=== PATIENT | female | born 1945 | race Caucasian/White ===

== ENCOUNTER 2017-02-07 15:55 | Emergency (ER) | payer MEDICARE, MEDICAID | END 2017-02-07 16:40 | LOC: MADERS 15:55 | DX: Z04.3 Encounter for examination and observation following other accident (principal); R53.1 Weakness; I48.91 Unspecified atrial fibrillation; D64.9 Anemia, unspecified; G47.00 Insomnia, unspecified; G20 Parkinson's disease; F02.80 Dementia in other diseases classified elsewhere, unspecified severity, without behavioral disturbance, psychotic disturbance, mood disturbance, and anxiety; E03.9 Hypothyroidism, unspecified; K21.9 Gastro-esophageal reflux disease without esophagitis; F32.9 Major depressive disorder, single episode, unspecified; I95.1 Orthostatic hypotension; F29 Unspecified psychosis not due to a substance or known physiological condition; Z79.82 Long term (current) use of aspirin; Z79.899 Other long term (current) drug therapy; W05.0XXA Fall from non-moving wheelchair, initial encounter | CPT/HCPCS: 99284 ==

== ENCOUNTER 2017-05-05 08:58 | Emergency (ER) | payer MEDICARE, MEDICAID ==
--- NOTE | 2017-05-05 09:47 | RAD ---
PORTABLE UPRIGHT FRONTAL CHEST RADIOGRAPH: Date: 05/05/17 COMPARISON: 08/09/15. HISTORY: Weakness. FINDINGS: Severe degenerative change at the right shoulder noted. Stimulating device with associated leads exte nd into the left aspect of the neck. No lobar consolidation or alveolar edema. Mild interstitial prom inence noted. IMPRESSION: No lobar consolidation or alveolar edema. POS: JOSUE
--- NOTE | 2017-05-05 10:00 | RAD ---
KUB: Date: 05/05/17 HISTORY: Altered mental status, abdominal pain and mass. FINDINGS: There is a large amount of stool overlying the pelvis, which is likely on the basis of a stool-filled rectum. Question fecal impaction. Motion limits detailed assessment. There is mild gaseous distentio n of the sigmoid colon and ascending colon. Supine imaging limits assessment for small bowel obstruct ion and free intraperitoneal air. IMPRESSION: Limited examination demonstrates no evidence for small bowel obstruction. Prominent stool overlies th e pelvis suggesting possible fecal impaction. Evaluation for abdominal mass could be best assessed vi a CT as clinically indicated. POS: REGINA
[2017-05-05 10:08] LABS: Mean Corpuscular HGB CONC 32.9 g/dL (32.0-36.0); Mean Corpuscular Hemoglobin 30.5 pg (27.0-31.0); Mean Corpuscular Volume 92.6 fL (81.0-99.0); Red Blood Cell (RBC) Count 4.25 mill/uL (4.20-5.40); White Blood Cell (WBC) Count 8.1 thou/uL (4.8-10.8)
[2017-05-05 10:09] LABS: #Basophils 0.1 thou/uL (0.0-0.2); #Eosinphils 0.1 thou/uL (0.0-0.7); #Monocytes 0.6 thou/uL (0.11-0.59); #Neutrophils 6.4 thou/uL (1.40-6.50); %Basophils 0.7 % (0.0-1.0); %Eosinophils 0.7 % (0.0-10.0); %Lymphocytes 12.4 % (21.0-51.0); %Monocytes 7.2 % (0.0-10.0); %Neutrophils 79.1 % (42.0-75.0); Mean Platelet Volume 7.6 fL (7.4-10.4); Platelet Count 290 thou/uL (130-400); RBC Distribution Width 12.6 % (11.5-14.5)
[2017-05-05 10:16] LABS: Carbon Dioxide 28 mmol/L (23-31); Chloride 104 mmol/L (98-107); Potassium 4.2 mmol/L (3.5-5.1); Sodium 139 mmol/L (136-145)
[2017-05-05 10:17] LABS: ALT (SGPT) 9 U/L (8-55); AST (SGOT) 19 U/L (5-34); Albumin 3.2 g/dL (3.4-4.8); Alkaline Phosphatase 173 U/L (40-150); Anion Gap 11 mmol/L (10-20); BUN (Urea Nitrogen) 16 mg/dL (9.8-20.1); Bilirubin, Total 0.6 mg/dL (0.2-1.2); Calc. Creatinine Clearance 0 mL/min (70-130); Calcium 8.6 mg/dL (7.8-10.44); Estimated GFR-MDRD Greater than 90; Globulin 3.9 g/dL (2.4-3.5); Glucose 99 mg/dL (83-110); Protein, Total 7.1 g/dL (5.8-8.1)
[2017-05-05 10:22] LABS: Clarity Slightly Cloudy (Clear); Leukocyte Moderate (Negative); Nitrite Positive (Negative); Protein, Urine (Dipstick) Trace mg/dL (Neg-Trace)
[2017-05-05 10:23] LABS: Bacteria/HPF 2+ HPF (None Seen); Bilirubin Negative (Negative); Blood, Urine Trace (Negative); Glucose, Urine (Dipstick) Negative (Negative); RBC/HPF 0-3 HPF (0-3); Squamous Epithelial 0-3 HPF (0-3); Urobilinogen 0.2 mg/dL (0.2-1.0)
[2017-05-05 10:32] LABS: CKMB 0.9 ng/mL (0-6.6); Troponin I Less than 0.010 ng/mL (< 0.028)
[2017-05-05] MEDS ORDERED: cefTRIAXone\\ROCEPHIN 1 GM VIAL ONE (10:53)
== END 2017-05-05 13:32 | disposition short-term general hospital (02) ==
LOC: MADERS 08:58
DX: N39.0 Urinary tract infection, site not specified (principal); R00.1 Bradycardia, unspecified; I48.91 Unspecified atrial fibrillation; G20 Parkinson's disease; F02.80 Dementia in other diseases classified elsewhere, unspecified severity, without behavioral disturbance, psychotic disturbance, mood disturbance, and anxiety; G47.00 Insomnia, unspecified; K21.9 Gastro-esophageal reflux disease without esophagitis; E03.9 Hypothyroidism, unspecified; M19.90 Unspecified osteoarthritis, unspecified site; M47.812 Spondylosis without myelopathy or radiculopathy, cervical region; F32.9 Major depressive disorder, single episode, unspecified
CPT/HCPCS: 51701; 71010; 74000; 80053; 81003; 81015; 82553; 84484; 85025; 87077; 87086; 87186; 93005; 96374; A4353; J0696

== ENCOUNTER 2017-07-06 16:54 | Outpatient (CLI) | payer MEDICARE, OTHER | END 2017-07-06 16:55 | disposition home or self-care (01) | LOC: MADLABBHPM 16:54 | PROVIDERS: ATTEND Family Medicine | DX: R05 Cough (principal); R50.9 Fever, unspecified; R09.89 Other specified symptoms and signs involving the circulatory and respiratory systems ==

== ENCOUNTER 2019-04-26 08:11 | Emergency (ER) | payer MEDICARE, OTHER ==
--- NOTE | 2019-04-26 08:45 | RAD ---
RADIOGRAPH CHEST 1 VIEW: DATE: 04/26/2019 HISTORY: 74-year-old female with fever. FINDINGS: There are no airspace densities, pulmonary edema, pneumothorax, or cardiomegaly. The lateral costophr enic angles are sharp. DBS generator overlies lateral aspect of left midlung field, with leads ascending the left neck. IMPRESSION: 1. No acute cardiopulmonary findings. 2. Deep brain stimulator.
[2019-04-26 08:48] LABS: Bilirubin Small (Negative); Blood, Urine Moderate (Negative); Clarity Slightly Cloudy (Clear); Glucose, Urine (Dipstick) Negative (Negative); Leukocyte Large (Negative); Nitrite Negative (Negative); Protein, Urine (Dipstick) 100 mg/dL (Neg-Trace)
[2019-04-26 08:53] LABS: WBC/HPF Greater Than 50 HPF (0-3)
[2019-04-26 08:54] LABS: Bacteria/HPF 3+ HPF (None Seen); Squamous Epithelial 0-3 HPF (0-3)
[2019-04-26] MEDS ORDERED: Sodium Chloride 0.9% 100 ML ONE (08:55)
[2019-04-26] MEDS ORDERED: cefTRIAXone\\ROCEPHIN 1 GM VIAL ONE (08:55)
[2019-04-26] MEDS ORDERED: Sodium Chloride 0.9% 1,000 ML ONE ×2 (08:55→09:56)
[2019-04-26 09:17] LABS: ALT (SGPT) 18 U/L (8-55); AST (SGOT) 28 U/L (5-34); Albumin 2.8 g/dL (3.4-4.8); Alkaline Phosphatase 127 U/L (40-110); Anion Gap 14 mmol/L (10-20); BUN (Urea Nitrogen) 38 mg/dL (9.8-20.1); Bilirubin, Total 1.3 mg/dL (0.2-1.2); Calc. Creatinine Clearance 0 mL/min (70-130); Calcium 8.2 mg/dL (7.8-10.44); Carbon Dioxide 24 mmol/L (23-31); Chloride 107 mmol/L (98-107); Estimated GFR-MDRD 34; Globulin 3.7 g/dL (2.4-3.5); Glucose 90 mg/dL (83-110); Potassium 3.6 mmol/L (3.5-5.1); Protein, Total 6.5 g/dL (6.0-8.3); Sodium 141 mmol/L (136-145)
[2019-04-26 09:28] LABS: Band 13 % (5-11); Hemoglobin 12.3 g/dL (12.0-16.0); Lymphocytes 1 % (21-51); MDiff Complete? YES; Mean Corpuscular HGB CONC 31.3 g/dL (32.0-36.0); Mean Corpuscular Hemoglobin 28.4 pg (27.0-31.0); Mean Corpuscular Volume 90.7 fL (78.0-98.0); Mean Platelet Volume 7.3 fL (7.4-10.4); Monocytes 2 % (0-10); Neutrophil 83 % (42-75); Platelet Count 228 thou/uL (130-400); Platelet Morphology Comment Appears Adequate; RBC Distribution Width 12.8 % (11.5-14.5); RBC Morphology Normal; Reactive Lymphocytes 1 % (0-10); Red Blood Cell (RBC) Count 4.33 mill/uL (4.20-5.40); White Blood Cell (WBC) Count 35.3 thou/uL (4.8-10.8)
== END 2019-04-26 11:07 | disposition short-term general hospital (02) ==
LOC: MADERS 08:11
DX: A41.9 Sepsis, unspecified organism (principal); N39.0 Urinary tract infection, site not specified; D72.829 Elevated white blood cell count, unspecified; N28.9 Disorder of kidney and ureter, unspecified; F03.90 Unspecified dementia, unspecified severity, without behavioral disturbance, psychotic disturbance, mood disturbance, and anxiety; I48.91 Unspecified atrial fibrillation; D64.9 Anemia, unspecified; G47.00 Insomnia, unspecified; K21.9 Gastro-esophageal reflux disease without esophagitis; M19.90 Unspecified osteoarthritis, unspecified site; F32.9 Major depressive disorder, single episode, unspecified; F29 Unspecified psychosis not due to a substance or known physiological condition
CPT/HCPCS: 36415; 71045; 80053; 81003; 81015; 83605; 85025; 87040; 87077; 87086; 87149; 87186; 96361; 96365; J0696; J3490; J7050

== ENCOUNTER 2019-05-04 15:00 | Emergency (ER) | payer MEDICARE, OTHER ==
[~2019-05-04 15:00] MED LIST: Sodium Chloride 0.9% 1,000 ML BAG ONE
[2019-05-04 15:55] LABS: #Basophils 0.1 thou/uL (0.0-0.2); #Lymphocytes 1.9 thou/uL (1.20-3.40); #Neutrophils 11.2 thou/uL (1.40-6.50); %Basophils 0.6 % (0.0-1.0); %Eosinophils 0.1 % (0.0-10.0); %Lymphocytes 13.4 % (21.0-51.0); %Monocytes 7.1 % (0.0-10.0); %Neutrophils 78.8 % (42.0-75.0); Hemoglobin 12.3 g/dL (12.0-16.0); Mean Corpuscular HGB CONC 31.1 g/dL (32.0-36.0); Mean Corpuscular Hemoglobin 28.5 pg (27.0-31.0); Mean Corpuscular Volume 91.9 fL (78.0-98.0); Mean Platelet Volume 6.3 fL (7.4-10.4); Platelet Count 377 thou/uL (130-400); RBC Distribution Width 13.2 % (11.5-14.5); Red Blood Cell (RBC) Count 4.32 mill/uL (4.20-5.40); White Blood Cell (WBC) Count 14.3 thou/uL (4.8-10.8)
[2019-05-04 16:08] LABS: ALT (SGPT) 20 U/L (8-55); AST (SGOT) 17 U/L (5-34); Albumin 2.7 g/dL (3.4-4.8); Alkaline Phosphatase 158 U/L (40-110); Anion Gap 16 mmol/L (10-20); BUN (Urea Nitrogen) 20 mg/dL (9.8-20.1); Bilirubin, Total 0.8 mg/dL (0.2-1.2); Calc. Creatinine Clearance 0 mL/min (70-130); Calcium 8.1 mg/dL (7.8-10.44); Carbon Dioxide 30 mmol/L (23-31); Chloride 102 mmol/L (98-107); Estimated GFR-MDRD 67; Globulin 4.5 g/dL (2.4-3.5); Glucose 74 mg/dL (83-110); Protein, Total 7.2 g/dL (6.0-8.3); Sodium 145 mmol/L (136-145)
--- NOTE | 2019-05-04 16:13 | RAD ---
Exam: Chest one view HISTORY:Fever Comparison: 04/26/2019 FINDINGS: Cardiac silhouette:Upper normal cardiac silhouette. Aorta: Atherosclerosis of the aorta Pulmonary vessels: Normal Costophrenic angles: Left-sided pleural effusion. LUNGS: Hyperinflation. Chronic changes. Left lower lobe consolidation. Stable an incompletely evaluated left vagal stimulator Pneumothorax: None Osseous abnormalities: None IMPRESSION: 1. Pleural and parenchymal changes in the left lung base. Continued surveillance is recommended
[2019-05-04] MEDS ORDERED: Sodium Chloride 0.9% 100 ML ONE (16:14)
[2019-05-04] MEDS ORDERED: Meropenem 1 GM VIAL ONE (16:14)
[2019-05-04 16:47] LABS: Bilirubin Negative (Negative); Blood, Urine Small (Negative); Glucose, Urine (Dipstick) Negative (Negative); Leukocyte Trace (Negative); Nitrite Negative (Negative); Protein, Urine (Dipstick) 30 mg/dL (Neg-Trace); Urobilinogen 0.2 mg/dL (Less than 2)
[2019-05-04 16:56] LABS: Clarity Hazy (Clear)
[2019-05-04 17:00] LABS: Bacteria/HPF Rare-Few HPF (None Seen); Yeast-Budding Rare HPF (None Seen)
== END 2019-05-04 19:13 | disposition short-term general hospital (02) ==
LOC: MADERS 15:00
DX: A41.9 Sepsis, unspecified organism (principal); R65.20 Severe sepsis without septic shock; N39.0 Urinary tract infection, site not specified; F03.90 Unspecified dementia, unspecified severity, without behavioral disturbance, psychotic disturbance, mood disturbance, and anxiety; I48.91 Unspecified atrial fibrillation; D64.9 Anemia, unspecified; G47.00 Insomnia, unspecified; E03.9 Hypothyroidism, unspecified; K21.9 Gastro-esophageal reflux disease without esophagitis; F32.9 Major depressive disorder, single episode, unspecified; F29 Unspecified psychosis not due to a substance or known physiological condition
CPT/HCPCS: 36415; 71045; 80053; 81003; 81015; 83605; 85025; 87040; 87086; 87804; 96361; 96365; A4353; J2185; J3490; J7050